=== PATIENT | female | born 1960 | race African-American/Black ===

== ENCOUNTER 2018-03-23 10:55 | Outpatient (CLI) | payer MEDICARE, MEDICAID | END 2018-03-23 10:56 | disposition home or self-care (01) | LOC: BICMAMMO 10:55 | PROVIDERS: ATTEND Family Medicine | DX: Z12.31 Encounter for screening mammogram for malignant neoplasm of breast (principal) | CPT/HCPCS: 77063; 77067 ==

== ENCOUNTER 2018-09-18 08:02 | Outpatient (CLI) | payer MEDICARE, MEDICAID ==
--- NOTE | 2018-09-18 09:06 | RAD ---
Exam: UPPER GI: HISTORY: Morbid obesity. Pre bariatric surgery workup. COMPARISON: None. Exposure: 1.4 minutes. 69.747 mGy*cm^2. 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 Scattered fecal materi al in a nondistended, nondilated colon. The thoracic esophagus has an overall normal course and caliber. No mucosal abnormality. There is a m oderate hiatal hernia with multiple episodes of reflux during fluoroscopy. Gastric mucosa has a normal appearance. Visualized small bowel loops are grossly unremarkable. IMPRESSION: Moderate hiatal hernia with evidence of reflux during fluoroscopy. Transcribed Date/Time: 09/18/2018 9:12 AM
== END 2018-09-18 08:03 | disposition home or self-care (01) ==
LOC: RAD 08:02
PROVIDERS: ATTEND Specialist
DX: E66.01 Morbid (severe) obesity due to excess calories (principal); K44.9 Diaphragmatic hernia without obstruction or gangrene; K21.9 Gastro-esophageal reflux disease without esophagitis
CPT/HCPCS: 74247

== ENCOUNTER 2018-10-09 10:28 | Outpatient (CLI) | payer MEDICARE, OTHER | END 2018-10-09 10:29 | disposition home or self-care (01) | LOC: DTY/OP 10:28 | PROVIDERS: ATTEND Specialist | DX: Z01.818 Encounter for other preprocedural examination (principal); E66.01 Morbid (severe) obesity due to excess calories | CPT/HCPCS: 97802 ==

== ENCOUNTER 2019-11-22 08:25 | Observation (INO) | payer MEDICARE, OTHER ==
[2019-11-22] MEDS ORDERED: diphenhydrAMINE 50 MG/ML VIAL ONE (09:11)
[2019-11-22] MEDS ORDERED: Aspirin Chewable 81 MG TAB ONE (09:11)
[2019-11-22] MEDS ORDERED: Metoclopramide HCl 10 MG/2 ML VIAL ONE (09:11)
[2019-11-22 09:34] LABS: #Basophils 0.1 thou/uL (0.0-0.2); #Eosinphils 0.1 thou/uL (0.0-0.7); #Lymphocytes 2.5 thou/uL (1.20-3.40); #Monocytes 0.6 thou/uL (0.11-0.59); #Neutrophils 4.6 thou/uL (1.40-6.50); %Basophils 0.7 % (0.0-1.0); %Eosinophils 1.4 % (0.0-10.0); %Lymphocytes 31.5 % (21.0-51.0); %Monocytes 7.7 % (0.0-10.0); %Neutrophils 58.8 % (42.0-75.0); Hemoglobin 11.9 g/dL (12.0-16.0); Mean Corpuscular HGB CONC 30.1 g/dL (32.0-36.0); Mean Corpuscular Hemoglobin 22.8 pg (27.0-31.0); Mean Corpuscular Volume 75.7 fL (78.0-98.0); Mean Platelet Volume 9.1 fL (7.4-10.4); Platelet Count 341 thou/uL (130-400); RBC Distribution Width 15.6 % (11.5-14.5); Red Blood Cell (RBC) Count 5.22 mill/uL (4.20-5.40); White Blood Cell (WBC) Count 7.8 thou/uL (4.8-10.8)
[2019-11-22 09:55] LABS: ALT (SGPT) 27 U/L (8-55); AST (SGOT) 32 U/L (5-34); Albumin 4.4 g/dL (3.5-5.0); Alkaline Phosphatase 97 U/L (40-110); Anion Gap 17 mmol/L (10-20); BUN (Urea Nitrogen) 5 mg/dL (9.8-20.1); Bilirubin, Total 0.4 mg/dL (0.2-1.2); Calc. Creatinine Clearance 0 mL/min (70-130); Calcium 9.3 mg/dL (7.8-10.44); Carbon Dioxide 19 mmol/L (22-29); Chloride 108 mmol/L (98-107); Estimated GFR-MDRD Greater than 90; Globulin 3.6 g/dL (2.4-3.5); Glucose 115 mg/dL (70-105); Lipase 29 U/L (8-78); Potassium 3.4 mmol/L (3.5-5.1); Sodium 141 mmol/L (136-145)
--- NOTE | 2019-11-22 10:19 | CT ---
CT PULMONARY ANGIOGRAM WITH IV CONTRAST AND 3D POSTPROCESSING: HISTORY: Left-sided chest pain. FINDINGS: There is good contrast opacification of the pulmonary arterial vasculature without filling defects to suggest pulmonary embolism. The thoracic aorta is well opacified without aneurysm or dissection. N o pericardial or pleural effusions are seen. There is subsegmental atelectatic change of the left ale ng base. No pneumothoraces, lobar consolidation, or lung nodule/masses are noted. A tiny peripheral calcified granuloma is seen in the right lung base. Upper abdominal tomograms demonstrate postop ch anges in the stomach. There are degenerative changes in the spine. IMPRESSION: No CT evidence of pulmonary embolism. POS: OFF
[2019-11-22] MEDS ORDERED: Acetaminophen 325 MG/10.15 ML UDCUP ONE (12:02)
--- NOTE | 2019-11-22 12:12 | PDOC.FPRHP ---
- History of Present Illness Chief Complaint: chest pain History of Present Illness: Patient notes left sided chest pain with no radiations that started last night when she got up from bed to use the restroom, describes it as stabbing, 8-9/10 pain, lasting an hour or so at a time before completely clearing. She notes it was intermittent throughout the night and she tried gas pills with no relief, no positional changes improved it. Notes history of MIs, multiple with no stents , last in her 50s. Notes family history of CAD. Patient on aspirin which she stopped the last 2 weeks due to gastric bypass surgery 2 weeks ago. Patient states she has been nauseous and dry heaving since yesterday. Patient notes the chest pain resolved with the nitro patch. It is now 0/10 pain. Patient notes she had a treadmill stress test before the bariatric surgery 2 weeks ago. Patient endorses headache throughout the head, started after nitro, notes small dizzy spell this am. Denies shortness of breath, coughing, abdominal pain. Patient saw the heart doctor,Dr. Gonzalez and had a full cardiac workup before her gastric surgery. ED Course: received 4mg morphine, NGTs spray with EMS, nitro patch with ED - Allergies/Adverse Reactions Allergies Allergy/AdvReac Type Severity Reaction Status Date / Time codeine Allergy Hives Verified 11/22/19 15:17 - Home Medications Medication Instructions Recorded Confirmed Type ALButerol Sulfate [Ventolin Neb] 2 inh .ROUTE Q2H PRN 11/07/19 11/22/19 History Amlodipine [Norvasc] 1 tab PO DAILY 11/07/19 11/22/19 History Aspirin [Ecotrin Low Strength] 1 tab PO BID 11/07/19 11/22/19 History Atorvastatin Calcium [Lipitor] 1 tab PO DAILY 11/07/19 11/22/19 History Carvedilol [Coreg] 1 tab PO DAILY 11/07/19 11/22/19 History Esomeprazole [NexIUM Injection] 1 tab PO DAILY 11/07/19 11/22/19 History Estrogen,Con/M-Progest Acet 1 tab PO DAILY 11/07/19 11/22/19 History [Prempro] Fluticasone Propionate [Flonase 1 spr EA NARE BID 11/07/19 11/22/19 History Nasal [place]] Losartan Potassium 1 tab PO DAILY 11/07/19 11/22/19 History QUEtiapine Fumarate [SEROquel] 2 tab PO HS 11/07/19 11/22/19 History Sertraline HCl [Zoloft] 1 tab PO DAILY 11/07/19 11/22/19 History Multivitamin [One-A-Day Essential] 1 tablet PO DAILY 11/22/19 11/22/19 History PHENYLephrine HCl [Sinus 10 mg PO DAILY 11/22/19 11/22/19 History Decongestant] - History PMHx: HTN, CAD, MIs, multiple, HLD, Bipolar, Insomnia PSHx: appendectomy, tubal, ovary removed, bariatric surgery FHx: HTN, CAD, father passed in 40s from [place] Social: no smoking, no drugs, no alcohol - Review of Systems General: denies: fever/chills, weight/appetite/sleep changes Eyes: denies: eye pain, vision changes Respiratory: denies: cough, congestion, shortness of breath Cardiovascular: reports: chest pain. denies: palpitation Gastrointestinal: reports: nausea, vomiting. denies: diarrhea, constipation, abdominal pain Genitourinary: denies: incontinence, dysuria, polyuria Skin: denies: rashes Musculoskeletal: denies: pain, tenderness Neurological: reports: other (headache) Psychological: reports: anxiety, depression - Vital signs 154/82, Pulse: 83, Resp: 20, Temp: 98.9FO2 sat: 96 on RA, 104kg - Physical Exam Constitutional: NAD, awake, alert and oriented HEENT: normocephalic and atraumatic, PERRLA Neck: supple, FROM Heart: RRR, no murmurs/rubs/gallops Lungs: CTAB, no respiratory distress Abdomen: soft, non-tender, bowel sounds present Neurological: no focal deficit, CN II-XII intact Skin: no rash/lesions Heme/Lymphatic: no unusual bruising or bleeding, no purpura Psychiatric: normal mood and affect, good judgment and insight, intact recent and remote memory FMR H&P: Results - Labs Result Diagrams: 11/22/19 09:11/22/19 09: Lab results: WBC 7.8 thou/uL (4.8-10.8) 11/22/19 09: Hgb 11.9 g/dL (12.0-16.0) L 11/22/19 09:20 Hct 39.5 % (36.0-47.0) 11/22/19 09:20 MCV 75.7 fL (78.0-98.0) L 11/22/19 09:20 Plt Count 341 thou/uL (130-400) 11/22/19 09:20 Neutrophils % 58.8 % (42.0-75.0) 11/22/19 09:20 Sodium 141 mmol/L (136-145) 11/22/19 09:20 Potassium 3.4 mmol/L (3.5-5.1) L 11/22/19 09:20 Chloride 108 mmol/L (98-107) H 11/22/19 09:20 Carbon Dioxide 19 mmol/L (22-29) L 11/22/19 09:20 BUN 5 mg/dL (9.8-20.1) L 11/22/19 09:20 Creatinine 0.72 mg/dL (0.6-1.1) 11/22/19 09:20 Glucose 115 mg/dL (70-105) H 11/22/19 09:20 Calcium 9.3 mg/dL (7.8-10.44) 11/22/19 09:20 Total Bilirubin 0.4 mg/dL (0.2-1.2) 11/22/19 09:20 AST 32 U/L (5-34) 11/22/19 09:20 ALT 27 U/L (8-55) 11/22/19 09:20 Alkaline Phosphatase 97 U/L (40-110) 11/22/19 09:20 B-Natriuretic Peptide 36.3 pg/mL (0-100) 11/22/19 09:20 Serum Total Protein 8.0 g/dL (6.0-8.3) 11/22/19 09:20 Albumin 4.4 g/dL (3.5-5.0) 11/22/19 09:20 Lipase 29 U/L (8-78) 11/22/19 09:20 - EKG Interpretation EKG: NSR, T wave inversions in V3,4 FMR H&P: A/P - Plan Atypical Chest Pain, Suspected Anxiety vs GERD vs ACS vs PE [employer] [facility] Trop neg x 1, EKG showing t wave inversions in V3,4 CTA Negative Heart Score 5 FH/SH: Father passed of [place] in 40s, 3-4 cigarette smoker on/off x 40 years, quit 3 years ago Reported cardiac pre-surgery workup with stress - negative - continue PPI - will request records from [facility] office - NPO at midnight for possible stress in the am - will trend troponins - will risk stratify with lipids, a1c, TSH - hold aspirin - admit tele for observation Hx Gastric Bypass Surgery 11/08 Dr. Burrows - Surgeon Reported stress test and cardiac pre-surgery workup negative No abdominal pain today, +N/V CTA neg -surgeon consulted for continued care from ED -continue clear liquid diet Hx CAD with multiple MIs, no stents - see management as kavon - risk stratify - close f/u with cards HLD - resume high intensity statin Anxiety - resume home meds Bipolar - resume home meds Insomnia - will resume home meds Code status: Full Diet: HH pending beside swallow PCP: none Dispo: admit tele/obs, LOS <48 hours FMR H&P: Upper Level - Plan Date/Time: 11/22/19 1209 Roxy Gonzalez DO, have evaluated this patient and agree with findings/plan as outlined by corporate legal intern resident. Pertinent changes/additions are listed here. Pt is a 59 yo F with PMH of CAD, HLD, HTN, GERD, anxiety, bipolar DO presents with CP onset yesterday after getting up and continued intermittently all night , associated with n/v. Recently had bariatric surgery, off ASA d/t surgery. She had cardiac clearance workup with [employer] about 1-2 month ago. She endorses anxiety worsened yesterday and severe gas pain although unrelieved yesterday by TUMS. Of note, was given Nitro in ED which relieved her pain. Now complaining of GAMBLE and nausea. VS: 154/82, P83, R20, T98.9, O296%RA PE: Gen: NAD HEENT: Moist MM, no LAD Heart: RRR, no murmurs or extra sounds. Distal pulses 2+ Lungs: CTAB, no wheezing. No increased work of breathing Abd: soft, nontender, BS+, no masses or hernias Ext: no cyanosis or edema Skin: no rashes Psych: AOx3 Pertinent Labs/Imaging: Trop: neg CTA: neg BNP: 36.3 troponin: <0.010 A/P: Atypical CP with hx of [place]: -EKG with Twave inversion in V3, V4 -Trop neg, but relieved by Nitroglycerin, continue prn Nitro and trend troponin -Contacting [facility] office to see what workup has been done recently, plan for stress test if not done -HEART score 5 -Risk stratify with FLP, A1c, TSH -could be related to gas pain from recent surgery -continue PPI Recent Gastric Bypass Surgery: -surgeon consulted for continued care from ED -continue clear liquid diet HTN: -continue home meds HLD: -continue high intensity statin Anxiety: -continue home medications GERD: -continue home Nexium Dispo: stable, obs tele DVT PPx: Lovenox GI PPx: Nexium Code Status: Full Addendum - Attending - Attending Attestation Date/Time: 11/22/19 6193 I personally evaluated the patient and discussed the management with Dr. Horner/ Figueroa. I agree with the History, Examination, Assessment and Plan documented above with any addition or exceptions noted below. Patient here for atypical chest pain. She apparently had cardiac evaluation in the not too distant past, and we will work to get those records. Her EKG does not show any ST segment changes, and her troponins are currently negative. Will do ACS r/o with enzymes and await further records. We do not anticipate that this is related to her recent surgery, but her pain could have an abdominal component, so her surgeon has been consulted as a courtesy and also to provide input.
[2019-11-22] MEDS ORDERED: Morphine 4 MG/ML VIAL ONE (13:08)
[2019-11-22] MEDS ORDERED: Iopamidol-370 76% 500 ML 1 ML ONE (13:23)
[2019-11-22 14:02] LABS: Hemoglobin A1c 5.3 % (4.0-6.0)
[2019-11-22 14:17] LABS: Cardiac Risk 2.5 (Less than 4.5)
[2019-11-22 14:20] LABS: Troponin I Less than 0.010 ng/mL (< 0.028)
[2019-11-22] MEDS ORDERED: Ondansetron ODT 4 MG TAB SL PRN (14:20)
[2019-11-22] MEDS ORDERED: Acetaminophen 325 MG TAB PO PRN (14:20)
[2019-11-22] MEDS ORDERED: Ondansetron PF 4 MG/2 ML Vial IVP PRN (14:20)
[2019-11-22 15:08] VITALS: BMI 34.6
[2019-11-22] MEDS ORDERED: Nitroglycerin 0.4 MG TAB (25 Tab Bottle) SL PRN (16:39)
[2019-11-22 16:43] LABS: Troponin I Less than 0.010 ng/mL (< 0.028)
[2019-11-22] MEDS: Morphine 4 MG/ML VIAL SLOW IVP PRN ×2 (18:00→23:15)
--- NOTE | 2019-11-23 05:29 | PDOC.FM ---
- Subjective Subjective: Patient is resting in bed. She states that she has a headache across her head , similar to what she had yesterday, stating that morphine seems to be the only thing that is helping it. Notes history of chronic headaches. She denies chest pain or shortness of breath. - Objective MAR Reviewed: Yes Vital Signs & Weight: Vital Signs (12 hours) Temp Pulse Resp BP BP Pulse Ox 11/23/19 04:31 98.1 F 74 14 121/71 95 11/22/19 19:46 97 11/22/19 19:34 98.7 F 81 18 156/88 H 97 Weight Weight 103.328 kg Result Diagrams: 11/22/19 09:20 11/23/19 06:12 Phys Exam - Physical Examination Constitutional: NAD HEENT: PERRLA, moist MMs Respiratory: no wheezing, clear to auscultation bilateral Cardiovascular: RRR, no significant murmur Gastrointestinal: soft, non-tender, positive bowel sounds Musculoskeletal: no edema, pulses present Neurological: non-focal, normal sensation, moves all 4 limbs Psychiatric: A&O x 3 Skin: no rash Dx/Plan - Plan Plan: Atypical Chest Pain, Suspected Anxiety vs GERD vs ACS vs PE [employer] [facility] Trop neg x 3, EKG showing t wave inversions in V3,4 CTA Negative Heart Score 5 FH/SH: Father passed of [place] in 40s, 3-4 cigarette smoker on/off x 40 years, quit 3 years ago Records from Dr. Gonzalez office show Treadmill stress with EKG (05/2019) - normal - will get CR Pharm Cardiolite stress and NM Cardiac stress this am - continue PPI - hold aspirin - monitor on tele Hx Gastric Bypass Surgery 11/08 Dr. Burrows - Surgeon Reported stress test and cardiac pre-surgery workup negative No abdominal pain today, +N/V CTA Chest neg -surgeon consulted for continued care from ED -NPO for stress, continued clear liquid diet after Hx CAD with multiple MIs, no stents FLP: TGs 58, cholesterol 96, LDL 45, HDL 39 TSH 2.4, a1c 5.3 - see management as above - close f/u with cards HLD - resume high intensity statin Anxiety - resume home meds Bipolar - resume home meds Insomnia - will resume home meds Code status: Full Diet: NPO for stress, then bariatric diet PCP: none Dispo: LOS <48 hours Addendum - Attending - Attending Attestation Date/Time: 11/23/19 9127 I personally evaluated the patient and discussed the management with Dr. Horner. I agree with the History, Examination, Assessment and Plan documented above with any addition or exceptions noted below. Patient stable. No chest pain since admission. Consulting cardiology per their request.
[2019-11-23 06:40] LABS: Anion Gap 15 mmol/L (10-20); BUN (Urea Nitrogen) 4 mg/dL (9.8-20.1); Calc. Creatinine Clearance 146 mL/min (70-130); Calcium 8.2 mg/dL (7.8-10.44); Carbon Dioxide 22 mmol/L (22-29); Chloride 108 mmol/L (98-107); Estimated GFR-MDRD Greater than 90; Glucose 93 mg/dL (70-105); Potassium 3.5 mmol/L (3.5-5.1); Sodium 141 mmol/L (136-145)
[2019-11-23] MEDS ORDERED: traMADol HCl 50 MG TAB PO SCH ×2 (08:15)
[2019-11-23] MEDS ORDERED: Multivit, Therapeutic 1 TAB PO SCH (09:00)
[2019-11-23] MEDS ORDERED: Carvedilol 6.25 MG TAB PO SCH ×2 (09:00→21:00)
[2019-11-23] MEDS ORDERED: Atorvastatin Calcium 10 MG TAB PO SCH (09:00)
[2019-11-23] MEDS ORDERED: Pantoprazole 40 MG VIAL IVP SCH (09:00)
[2019-11-23] MEDS ORDERED: Losartan 25 MG TAB PO SCH (09:00)
[2019-11-23] MEDS ORDERED: Enoxaparin Sodium 40 MG/0.4 ML SYRINGE SC SCH (09:00)
[2019-11-23] MEDS ORDERED: Amlodipine 5 MG TAB PO SCH (09:00)
[2019-11-23 11:31] VITALS: TEMP 98.3
[2019-11-23] MEDS ORDERED: diphenhydrAMINE 50 MG CAP PO SCH (12:45)
[2019-11-23 13:59] LABS: SARS-CoV-2 MS2 Positive; SARS-CoV-2 N Gene Negative; SARS-CoV-2 S Gene Negative; SARS-CoV-2 by NAA Not Detected (NotDetected); SARS-CoV-2 orf1ab Negative
[2019-11-23 15:36] VITALS: BP 140/70
[2019-11-23] MEDS ORDERED: Metoclopramide HCl 10 MG TAB PO SCH (17:00)
--- NOTE | 2019-11-23 22:51 | CON ---
DATE OF CONSULTATION: 11/23/2019 PRIMARY CARE DOCTOR: Moshe Ash MD PRIMARY REWINDER: Dr. Dee. PRIMARY SURGEON: Dr. Burrows. REASON FOR CONSULT: Atypical chest pain. HISTORY OF PRESENT ILLNESS: Ms. Todd is a very pleasant 59-year-old female with a significant history of hypertension, history of hepatitis C in the past, prediabetes, history of , obese, anxiety, and depression. The patient underwent a gastric bypass 2 weeks ago. She was doing relatively well. She usually walk around the house 5 to 10 minutes at least 4-5 times a day, last walking was 2 days ago. The patient denied chest pain, heaviness, tightness, shortness of breath, or any cardiac complaints during the walking exercise. However, 2 days ago around nighttime, the patient started having stabbing like chest pain to the left upper chest, which did not improve with any method, she had the symptoms for 2 days, but when the patient went to the ER, the patient's symptom is resolved. She had been in the hospital for more than 24 hours. She has not had any stabbing like the chest pain or any cardiac complaints except the headache. The patient had a history of chronic headache also. At this moment, the patient denied chest pain, heaviness, tightness, shortness of breath, or any other cardiac complaints. The patient had echocardiogram done at Dr. Dee office in May 2019 with EF 55% to 60%, grade 1 diastolic dysfunction. Mild mitral valve regurgitation, mild tricuspid regurgitation. Then, the patient had a Lyndon protocol treadmill stress test in May 2019 with no significant ischemia or EKG changes during the exercise stress test. The peak heart rate of 137. No significant T-wave change or ST-segment change during the exercise. PAST MEDICAL HISTORY: Hepatitis C in the past, hypertension, obesity, gag reflex, diabetes, seizure. Last seizure was at the age of 39. Anxiety, depression, hypertension, and asthma. PAST SURGICAL HISTORY: Gastric bypass in October of 2019, appendectomy, tubal ligation, right ovary removed, gastric bypass with hernia repair in October of 2019. FAMILY HISTORY: According to the patient's [employer] record, the patient's father has a history of WI. However, the patient told me there are no significant WI or stent or coronary artery disease in her family. They have a significant family history of hypertension and congestive heart failure in her family in paternal and maternal side. SOCIAL HISTORY: The patient is single. She has 2 children, who is living well. The patient is an ex-smoker who quit in 2017. The patient denies ETOH or illicit drug abuse. Two days ago, she walk 5-10 minutes 4-5 times a day without any cardiac complaints. ALLERGIES: SHE IS ALLERGIC TO CODEINE, WHICH CAUSED THE ITCHINESS. MEDICATIONS: The patient's home medications; 1. Aspirin 81 mg twice a day mainly because of gastric bypass. 2. Ventolin for asthma 2 puffs every 2 hours as needed. 3. Zoloft 100 mg once a day. 4. Amlodipine 5 mg once a day. 5. Losartan 100 mg once a day. 6. Lipitor 10 mg once a day. 7. Prempro 0.625/2.5 mg 1 tablet once a day. 8. Carvedilol 12.5 mg once a day. 9. Seroquel 300 mg 2 tablets at night. 10. Flonase 1 spray each naris twice a day. 11. Nexium 40 mg once a day. 12. Multivitamin once a day. 13. Sinus decongestion 10 mg once a day. 14. Hydrochlorothiazide. REVIEW OF SYSTEMS: 12-point review of systems negative unless otherwise mentioned in the HPI. PHYSICAL EXAMINATION: VITAL SIGNS: Blood pressure 156/88, temperature 98.7, pulse 81 and sinus rhythm, O2 saturation 97% on room air, respiratory rate 18. GENERAL: The patient is alert and oriented x4, not in any acute distress. HEAD: Normocephalic, atraumatic. EYES: Extraocular muscle movement intact. ENT AND MOUTH: Oral and nasal mucosa moist without lesion. NECK: Supple. Normal range of motion. No JVD. RESPIRATORY: Clear to auscultation bilaterally, but diminished at the bases. No wheezing, rales, or rhonchi noted. CARDIOVASCULAR: Regular rate and rhythm. Normal S1, S2. There is no S3 or S4. No significant murmur, hives, or thrill noted. 2+ pulses in bilateral upper and lower extremity. No edema in the lower extremities. Carotid pulses are present. No bruit or thrill noted. ABDOMEN: Soft, nontender. No mass to palpitate. Bowel sounds are present, but hypoactive. MUSCULOSKELETAL: The patient is able to move all extremities. The patient denied claudication. SKIN: Warm and dry. No lesion, rash, or erythema noted. NEUROLOGIC: The patient is alert and oriented x4, nonfocal. PSYCHIATRIC: The patient's mood is appropriate. DIAGNOSTIC DATA: WBC 7.8, hemoglobin 11.9, hematocrit 39.5, platelet 341. Sodium 141, potassium 3.5, BUN 4, creatinine 0.67, glucose 93. Hemoglobin A1c 5.3, calcium 8.2. AST 32, ALT 27. Troponin negative x3. BUN 36.6, cholesterol 96, triglycerides 58, HDL 39, LDL 45. TSH 2.3987. CT scan of chest, no evidence of pulmonary embolism. ASSESSMENT AND PLAN: 1. Atypical chest pain. The patient's troponin has been negative x3 and 12-lead EKG showed no significant ST-segment change or T-wave inversion. The patient has had a stabbing like chest pain in the left upper chest without any other cardiac complaints. The patient has been in the hospital for more than 24 hours without any cardiac complaints except headache. The patient must be seen by Dr. Glover before the discharge, but most likely the patient might go home tonight and follow up with Dr. Dee's within 1-2 weeks for further evaluation. 2. Hypertension. The patient's blood pressure is slightly elevated. We would like to adjust the medications as appropriate. 3. Hyperlipidemia. She is on atorvastatin 10 mg once a day. The patient's cholesterol is under control. 4. Prediabetes. The patient's hemoglobin A1c has been well controlled under normal range. The patient is not on any diabetes medication, which is managed by primary care doctor. 5. History of gastric bypass and total hernia repair by Dr. Burrows 2 weeks ago, has been stable. We would continue to monitor. Thank you very much for Cardiology Service consult request to participate in the care of this patient. We will follow along the patient's care team and make further recommendations as appropriate. Job ID: [id number]
--- NOTE | 2019-11-24 01:24 | DIS ---
DATE OF ADMISSION: 11/22/2019 DATE OF DISCHARGE: 11/23/2019 ADMITTING ATTENDING: Larry Claudio MD DISCHARGE ATTENDING: Larry Claudio MD CONSULTS: Cardiology, Dr. Glover. PROCEDURES: None. PRIMARY DIAGNOSES: Atypical chest pain, likely 2/2 GERD SECONDARY DIAGNOSES: 1. History of gastric bypass surgery, 11/08. 2. History of coronary artery disease with multiple myocardial infarctions, no stents. 3. Hyperlipidemia. 4. Anxiety. 5. Bipolar. 6. Insomnia. DISCHARGE MEDICATIONS: 1. Multivitamin one tablet p.o. daily. 2. Phenylephrine HCL 10 mg p.o. daily. 3. Amlodipine one tablet p.o. daily. 4. Albuterol sulfate 2 inhales q.2 hours p.r.n. 5. Esomeprazole one tablet p.o. daily. 6. Carvedilol one tablet p.o. daily. 7. Atorvastatin calcium one tablet p.o. daily. 8. Fluticasone propionate one spray ea. nare b.i.d. 9. Estrogen, Con/M-Progest ACET one tablet p.o. daily. 10. Seroquel two tablets p.o. h.s. 11. Losartan potassium one tablet p.o. daily. 12. Sertraline HCL one tablet p.o. daily. DISCONTINUED MEDICATIONS: None. HISTORY OF PRESENT ILLNESS/HOSPITAL COURSE: The patient is a 59-year-old female with a history of CAD, hyperlipidemia, hypertension, 2 weeks s/p gastric bypass surgery, came to the ED complaining of chest pain. The patient stated the pain started when she was walking at home, described it as sharp, 8/10 pain, lasting about an hour in the left side of her chest, with no radiation noted. It would come and go throughout the night, calming down for an hour and then resuming, noting a heat pack helped the pain. On admission, she was given 0.4 mg of nitroglycerin which completely resolved her chest pain, just complained of a rebound headache. Troponins were negative x3 She was admitted to the floor for further evaluation of atypical chest pain. The patient recently was evaluated and had an EKG, treadmill stress test, prior to her gastric bypass surgery 2 weeks ago, the result is within normal limits. Consulted Cardiology, Dr. Glover , who recommended discharge of the patient with followup with Dr. Dee in the office in the next 1 to 2 months. DISPOSITION: Stable. DISCHARGE INSTRUCTIONS: LOCATION: Home. DIET: Bariatric per Dr. Burrows' recommendations. ACTIVITY: Ad kim. FOLLOWUP: 1. With Dr. Burrows in 1 to [address] Dee in 1 to 2 weeks. 3. With your primary care physician in 1 to 2 weeks. Job ID: [id number] MTDD
--- NOTE | 2019-11-24 07:08 | CON ---
DATE OF CONSULTATION: 11/23/2019 ADDENDUM TO CARDIOLOGY CONSULTATION: INDICATIONS FOR CONSULTATION: A 59-year-old female with chest pain. Please refer to the notes already dictated by my nurse practitioner. I have evaluated the patient. We have discussed this patient. I would agree with her assessment and plan. This 59-year-old female who is obese, who has recently underwent a gastric sleeve procedure and has lost about 20 pounds. She has presented previously with some complaints of chest pain. She had a stress test recently, which showed no evidence of ischemia. She had a normal left ventricular systolic function. Her EKG at this time remains normal. Her enzymes are negative. Her pain has resolved. She describes as being a sharp stabbing pain. Given her overall evaluation, I do not believe this is cardiac in nature at this time. There is no indication to repeat a stress test that was recently performed and showed no evidence of ischemia. Her cardiac enzymes shows a troponin of 0.01. Her LDL was 45. Her other laboratory data appeared to be within normal limits. PHYSICAL EXAMINATION: CHEST: At this time, her chest was clear to auscultation. CARDIOVASCULAR: Regular rate and rhythm. EXTREMITIES: No clubbing, cyanosis, or edema. NEUROLOGIC: She is complaining of a headache, but otherwise is unremarkable. SKIN: Warm and dry. IMPRESSION: 1. A 59-year-old female with atypical chest pain, which is most likely noncardiac in nature. From a cardiac standpoint, she is stable and could be discharged home today. She can be seen in the office in the next 1 to 2 months, can follow up with Dr. Dee, her primary market development director, she recently saw prior to undergoing a gastric sleeve procedure. 2. Morbid obesity. She will continue to lose weight. She is doing very well with her bypass surgery. 3. History of anxiety, but she appears to be stable at this time. I do not believe she has a true diagnosis of this. 4. History of hyperlipidemia. She will continue her statin medications. 5. Some history of bipolar disorder. This will be dealt with by the primary care service. At this time, again, overall cardiac status appears to be stable and the patient could be discharged to home. If there is any further questions or any changes, we will be more than happy to see her, but this time we will sign off. Job ID: [id number]
== END 2019-11-23 18:06 | disposition home or self-care (01) ==
LOC: ERS 08:25 → 2SW 12:55
PROVIDERS: ADMIT Student in an Organized Health Care Education/Training Program; ATTEND Student in an Organized Health Care Education/Training Program
DX: R07.89 Other chest pain (principal); E78.5 Hyperlipidemia, unspecified; F31.9 Bipolar disorder, unspecified; F41.9 Anxiety disorder, unspecified; G47.00 Insomnia, unspecified; I10 Essential (primary) hypertension; I25.10 Atherosclerotic heart disease of native coronary artery without angina pectoris; I25.2 Old myocardial infarction; I08.3 Combined rheumatic disorders of mitral, aortic and tricuspid valves; E11.9 Type 2 diabetes mellitus without complications; K21.9 Gastro-esophageal reflux disease without esophagitis; J45.909 Unspecified asthma, uncomplicated; E66.01 Morbid (severe) obesity due to excess calories; Z68.34 Body mass index [BMI] 34.0-34.9, adult; Z79.82 Long term (current) use of aspirin; Z79.899 Other long term (current) drug therapy; Z87.891 Personal history of nicotine dependence; Z88.5 Allergy status to narcotic agent; Z20.828 Contact with and (suspected) exposure to other viral communicable diseases; Z98.84 Bariatric surgery status
CPT/HCPCS: 71275; 80048; 80061; 83036; 83690; 83880; 84484 ×2; 93005; 96365; 96366; 96375 ×2; 96376; 99285; G0378 ×3; U0003; 36415; 80053; 84443; 85025; 87635; C9113; J1200; J2270; J2765; Q0163; Q9967

== ENCOUNTER 2019-11-26 00:35 | Emergency (ER) | payer MEDICARE, OTHER ==
[2019-11-26] MEDS ORDERED: diphenhydrAMINE 12.5 MG/5 ML UDCUP ONE (01:31)
[2019-11-26] MEDS ORDERED: diphenhydrAMINE 50 MG/ML VIAL ONE (01:31)
[2019-11-26] MEDS ORDERED: Metoclopramide HCl 10 MG/2 ML VIAL ONE (01:31)
[2019-11-26] MEDS ORDERED: Ketorolac Tromethamine 30 MG/ML VIAL ONE (02:05)
[2019-11-26] MEDS ORDERED: Metoprolol Tartrate 25 MG TAB ONE ×2 (03:08→03:09)
[2019-11-26] MEDS ORDERED: Metoprolol Tartrate 50 MG TAB ONE (03:09)
[2019-11-26] MEDS ORDERED: Metoprolol Tartrate 5 MG/5 ML VIAL ONE (03:28)
[2019-11-26] MEDS ORDERED: Acetaminophen 325 MG/10.15 ML UDCUP ONE (03:51)
== END 2019-11-26 04:00 | disposition home or self-care (01) ==
LOC: ERS 00:35
DX: G43.909 Migraine, unspecified, not intractable, without status migrainosus (principal); I25.2 Old myocardial infarction; E78.5 Hyperlipidemia, unspecified; I10 Essential (primary) hypertension; J45.909 Unspecified asthma, uncomplicated; K21.9 Gastro-esophageal reflux disease without esophagitis; F31.9 Bipolar disorder, unspecified; F41.9 Anxiety disorder, unspecified; Z79.899 Other long term (current) drug therapy
CPT/HCPCS: 96365; 96375; J1200; J1885; J2765; Q0163

== ENCOUNTER 2019-11-26 16:20 | Emergency (ER) | payer MEDICARE, OTHER ==
[~2019-11-26 16:20] MED LIST: Iopamidol-370 76% 500 ML 1 ML ONE
[2019-11-26 17:14] LABS: #Lymphocytes 3.3 thou/uL (1.20-3.40); #Monocytes 1.4 thou/uL (0.11-0.59); #Neutrophils 5.7 thou/uL (1.40-6.50); %Basophils 0.4 % (0.0-1.0); %Eosinophils 0.4 % (0.0-10.0); %Lymphocytes 31.7 % (21.0-51.0); %Monocytes 13.5 % (0.0-10.0); %Neutrophils 53.9 % (42.0-75.0); Hemoglobin 11.4 g/dL (12.0-16.0); Mean Corpuscular HGB CONC 30.8 g/dL (32.0-36.0); Mean Corpuscular Hemoglobin 23.3 pg (27.0-31.0); Mean Corpuscular Volume 75.8 fL (78.0-98.0); Mean Platelet Volume 8.7 fL (7.4-10.4); Platelet Count 356 thou/uL (130-400); RBC Distribution Width 15.8 % (11.5-14.5); White Blood Cell (WBC) Count 10.5 thou/uL (4.8-10.8)
[2019-11-26 17:30] LABS: ALT (SGPT) 42 U/L (8-55); AST (SGOT) 42 U/L (5-34); Albumin 4.3 g/dL (3.5-5.0); Alkaline Phosphatase 89 U/L (40-110); Anion Gap 19 mmol/L (10-20); BUN (Urea Nitrogen) 6 mg/dL (9.8-20.1); Bilirubin, Total 0.4 mg/dL (0.2-1.2); Calc. Creatinine Clearance 0 mL/min (70-130); Calcium 8.8 mg/dL (7.8-10.44); Carbon Dioxide 17 mmol/L (22-29); Chloride 111 mmol/L (98-107); Estimated GFR-MDRD Greater than 90; Globulin 3.3 g/dL (2.4-3.5); Glucose 115 mg/dL (70-105); Lipase 30 U/L (8-78); Potassium 3.3 mmol/L (3.5-5.1); Protein, Total 7.6 g/dL (6.0-8.3); Sodium 144 mmol/L (136-145)
[2019-11-26] MEDS ORDERED: Morphine 4 MG/ML VIAL ONE (17:45)
[2019-11-26] MEDS ORDERED: Ondansetron PF 4 MG/2 ML Vial ONE (17:45)
[2019-11-26 18:37] LABS: Bacteria/HPF None Seen HPF (None Seen); Bilirubin Negative (Negative); Blood, Urine Negative (Negative); Clarity Turbid (Clear); Glucose, Urine (Dipstick) Normal (Negative); Ketone, Urine 40 mg/dL (Negative); Leukocyte Negative Leu/uL (Negative); Nitrite Negative (Negative); Protein, Urine (Dipstick) 70 mg/dL (Neg-Trace); Squamous Epithelial 0-3 HPF (0-3); Urobilinogen Normal mg/dL (Less than 2); WBC/HPF 0-3 HPF (0-3)
[2019-11-26 18:38] LABS: Specific Gravity, Urine 1.049 (1.002-1.036)
[2019-11-26 18:44] LABS: Mucous/LPF 1+ LPF (<2+)
[2019-11-26 18:45] LABS: RBC/HPF 0-3 HPF (0-3)
--- NOTE | 2019-11-26 18:51 | CT ---
CT BRAIN WITHOUT CONTRAST: History: Syncope. FINDINGS: No evidence of acute infarct, hemorrhage, midline shift, or abnormal extraaxial fluid collections are seen. The ventricular size is normal and the basilar cisterns patent. The bony calvarium is intact. The visualized Paranasal sinuses and mastoid air cells are well aerated. IMPRESSION: No CT evidence of acute intracranial process. POS: MZA
[2019-11-26] MEDS ORDERED: Haloperidol Lactate 5 MG/ML VIAL ONE (19:15)
[2019-11-26] MEDS ORDERED: diphenhydrAMINE 50 MG/ML VIAL ONE (19:15)
--- NOTE | 2019-11-26 19:30 | CT ---
CT ABDOMEN AND PELVIS PERFORMED WITH CONTRAST ENHANCEMENT: History: Syncopal episode with abdominal pain and nausea and vomiting. Patient had a gastric bypass a pproximately 3-4 weeks ago. Denies any fever or chills. Comparison: 11-17-2019 FINDINGS: The lung bases are clear. Small hypodensity within the right lobe of the liver, statistically most likely a cyst. The spleen, p ancreas, and gallbladder regions are unremarkable. Gallbladder is mildly distended, but no inflammato ry change. Evidence of bariatric surgery is noted. There is no fluid collections, abscess or other in flammatory type change. Right and left adrenal glands and right and left kidneys are normal. There is no significant periaort ic or mesenteric adenopathy. CT OF PELVIS PERFORMED WITH CONTRAST ENHANCEMENT: Uterine fibroids are present. No adenopathy, mass, or free fluid. No inflammatory process. An appendi x is not identified. No significant bony findings. IMPRESSION: 1. No acute findings in the abdomen or pelvis. 2. Patient is status post bariatric surgery. No abnormal fluid collections associated with this. No s igns for abscess. No obstruction. POS: OFF
--- NOTE | 2019-12-01 16:36 | EKG ---
Test Reason : Blood Pressure : / mmHG Vent. Rate : 100 BPM Atrial Rate : 100 BPM P-R Int : 162 ms QRS Dur : 070 ms QT Int : 356 ms P-R-T Axes : 047 005 000 degrees QTc Int : 459 ms Normal sinus rhythm Possible Left atrial enlargement Septal infarct , age undetermined Abnormal ECG Confirmed by ISAI DANIEL ([id number]), videotape editor BHARAT GRANT ([id number]) on 12/01/2019 4:35:41 PM Referred By: Confirmed By:ISAI DANIEL
== END 2019-11-26 21:54 | disposition home or self-care (01) ==
LOC: ERS 16:20
DX: E86.0 Dehydration (principal); R11.2 Nausea with vomiting, unspecified; I25.2 Old myocardial infarction; E78.5 Hyperlipidemia, unspecified; I10 Essential (primary) hypertension; J45.909 Unspecified asthma, uncomplicated; K21.9 Gastro-esophageal reflux disease without esophagitis; F41.9 Anxiety disorder, unspecified; F31.9 Bipolar disorder, unspecified; Z79.899 Other long term (current) drug therapy
CPT/HCPCS: 36415; 51701; 70450; 74177; 80053; 81003; 81015; 83605; 83690; 83735; 85025; 93005; 96361; 96374; 96375; J1200; J1630; J2270; J2405; Q9967

== ENCOUNTER 2019-12-11 01:58 | Emergency (ER) | payer MEDICARE, OTHER ==
[2019-12-11] MEDS ORDERED: Acetaminophen 500 MG TAB ONE (02:25)
== END 2019-12-11 02:23 | disposition home or self-care (01) ==
LOC: ERS 01:58
DX: G89.18 Other acute postprocedural pain (principal); R10.9 Unspecified abdominal pain; I25.2 Old myocardial infarction; E78.5 Hyperlipidemia, unspecified; I10 Essential (primary) hypertension; J45.909 Unspecified asthma, uncomplicated; K21.9 Gastro-esophageal reflux disease without esophagitis; F41.9 Anxiety disorder, unspecified; F31.9 Bipolar disorder, unspecified; Z79.899 Other long term (current) drug therapy
CPT/HCPCS: 99281

== ENCOUNTER 2019-12-18 15:19 | Emergency (ER) | payer MEDICARE, OTHER | END 2019-12-18 16:18 | disposition home or self-care (01) | LOC: ERS 15:19 | DX: R07.89 Other chest pain (principal); I25.2 Old myocardial infarction; E78.5 Hyperlipidemia, unspecified; I10 Essential (primary) hypertension; J45.909 Unspecified asthma, uncomplicated; K21.9 Gastro-esophageal reflux disease without esophagitis; F41.9 Anxiety disorder, unspecified; F31.9 Bipolar disorder, unspecified; Z79.899 Other long term (current) drug therapy | CPT/HCPCS: 93005 ==